=== PATIENT | female | born 1985 | race Caucasian/White ===

== ENCOUNTER 2021-08-23 08:00 | Outpatient (CLI) | payer BC ==
--- NOTE | 2021-08-23 11:32 | XRAY Report ---
PROCEDURE: Toe(s) LT INDICATIONS: PAIN IN LEFT TOE TECHNIQUE: 3 views of the left fifth toe(s) acquired. COMPARISON: None FINDINGS: Bones: Subtle linear lucency through the distal phalanx of the left fifth toe with overlying soft ti ssue edema. Otherwise, no other fractures or dislocations. No suspicious bony lesions. Soft tissues: No suspicious soft tissue densities. IMPRESSION: Subtle linear lucency through the distal phalanx of the left fifth toe with overlying soft tissue kim ma. No cortical disruption or displacement. This may represent a possible nondisplaced fracture given history of trauma. A prominent nutrient foramen may have a similar appearance. Recommend immobilizat ion and repeat imaging in 10-14 days. Reviewed by: Calvin Bowden MD on 08/23/2021 11:31 AM PDT Approved by: Calvin Bowden MD on 08/23/2021 11:31 AM PDT Station ID: [id number]
== END 2021-08-23 23:59 | disposition home or self-care (01) ==
LOC: DI.S 08:00
PROVIDERS: ATTEND Physician Assistant
DX: M79.675 Pain in left toe(s) (principal); R60.0 Localized edema
CPT/HCPCS: 73660

== ENCOUNTER 2022-03-15 18:52 | Outpatient (CLI) | payer BC ==
--- NOTE | 2022-03-16 12:00 | XRAY Report ---
PROCEDURE: Chest 2 View X-Ray INDICATIONS: CHEST PRESSURE TECHNIQUE: 2 views of the chest were acquired. COMPARISON: None. FINDINGS: Surgical changes and devices: None. Lungs and pleura: No pleural effusions or pneumothorax. Lungs are clear. Mediastinum: Mediastinal contours are normal. Heart size is normal. Bones and chest wall: No suspicious bony abnormalities. Soft tissues appear unremarkable. IMPRESSION: No acute cardiopulmonary abnormality. Reviewed by: Satish Barry MD on 03/16/2022 11:59 AM [facility] Approved by: Satish Barry MD on 03/16/2022 11:59 AM [facility] Station ID: [id number]
== END 2022-03-15 18:53 | disposition home or self-care (01) ==
LOC: DI.S 18:52
PROVIDERS: ATTEND Physician Assistant
DX: R07.89 Other chest pain (principal); R06.02 Shortness of breath; Z86.16 Personal history of COVID-19

== ENCOUNTER 2023-05-03 02:03 | Outpatient (CLI) | payer BC | END 2023-05-03 02:04 | disposition EMS.NT | LOC: EMS 02:03 | DX: R45.82 Worries (principal) ==